=== PATIENT | male | born 1980 | race Hispanic/Latino ===

== ENCOUNTER 2018-11-19 14:12 | Emergency (ER) | payer OTHER ==
[2018-11-19] MEDS ORDERED: DILAUDID IV ONE ×2 (14:39→19:59)
[2018-11-19] MEDS ORDERED: ZOFRAN IV ONE (14:39)
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
[2018-11-19 14:50] LABS: Bilirubin,Urine NEG (Negative); Blood,Urine NEG (Negative); Color,Urine Yellow (Yellow); Mucus,Urine FEW /HPF; Protein,Urine <15 mg/dL mg/dL (Negative); RBC,Urine < 1.0 /HPF (0.0-6.0); Urobilinogen,Urine < 2.0 mg/dL (<2.0)
[2018-11-19 15:21] LABS: Basophils % (Auto) 0.4 % (0.0-1.8); Eosinophils % (Auto) 0.4 % (0.0-4.3); Hematocrit 45.6 % (35.5-45.6); Hemoglobin 15.4 gm/dl (11.8-15.2); Lymphocytes # (Auto) 1.5 K/mm3 (1.2-5.4); Lymphocytes % (Auto) 14.1 % (13.4-35.0); Mean Corpuscular HGB Conc 34 % (32-34); Mean Corpuscular Volume 92 fl (84-94); Monocytes # (Auto) 0.8 K/mm3 (0.0-0.8); Monocytes % (Auto) 8.1 % (0.0-7.3); Platelet Count 216 K/mm3 (140-440); Red Blood Count 4.99 M/mm3 (3.65-5.03); Red Cell Distribution Width 13.5 % (13.2-15.2)
[2018-11-19 16:05] LABS: Creatine Kinase MB 1.6 ng/mL (0.0-4.0)
[2018-11-19 16:08] LABS: Alanine Aminotransferase 9 units/L (7-56); Albumin 3.8 g/dL (3.9-5); BUN/Creatinine Ratio 11; Blood Urea Nitrogen 8 mg/dL (9-20); Calcium 9.1 mg/dL (8.4-10.2); Hemolysis Index 28
[2018-11-19] MEDS ORDERED: DILAUDID ONE (20:03)
--- NOTE | 2018-11-19 20:12 | Cat Scan Report ---
FINAL REPORT PROCEDURE: CT ABDOMEN PELVIS W CON TECHNIQUE: Computerized axial tomography of the abdomen and pelvis was performed after the IV inject ion of iodinated nonionic contrast. HISTORY: right inguinal pain COMPARISON: No prior studies are available for comparison. FINDINGS: Lower Lung garcia: Small amount of dependent atelectasis visualized. Upper Abdomen: The liver, the gallbladder, the adrenal glands, the pancreas and the spleen are unrema rkable. Kidneys, Ureters and Urinary bladder: No abnormalities are seen. No masses calculi or hydronephrosis visualized. No renal or ureteral calculi are seen Retroperitoneum: Atherosclerotic changes are seen in the abdominal aorta. No aneurysm is visualized. Nonspecific subcentimeter lymph nodes are seen in the retroperitoneum. No pathologically enlarged lym ph nodes are identified. Bowel: No abnormalities are identified. No evidence of bowel obstruction or free intraperitoneal gas. There is minimal fluid/ascites in the lower pelvis posteriorly. Normal-appearing appendix is seen in the right lower quadrant. Reproductive organs: Prostate gland is not appear to be significantly enlarged. Other: There is a small right inguinal hernia containing adipose tissue which is mildly edematous. No herniated loops of bowel are seen. IMPRESSION: Small right inguinal hernia present containing edematous adipose tissue. No herniated loops of bowel are seen. Minimal ascites collected in the lower pelvis posteriorly. No other abnormalities are seen.
[2018-11-19 21:07] VITALS: BP 125/91
== END 2018-11-19 21:06 ==
LOC: ED 14:12
DX: K40.90 Unilateral inguinal hernia, without obstruction or gangrene, not specified as recurrent (principal); F17.200 Nicotine dependence, unspecified, uncomplicated
CPT/HCPCS: 36415; 74177; 80053; 81001; 82550; 82553; 84484; 85025; 93005; 93010; 96374; 96375; 96376; 99284; J1170; J2405; Q9967